=== PATIENT | female | born 1965 | race Caucasian/White ===

== ENCOUNTER 2021-12-22 18:59 | Emergency (ER) | payer BC ==
[~2021-12-22] VITALS: Ht 167.6 cm; Wt 86.4 kg
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
[2021-12-22] MEDS ORDERED: HYDROcodone/APAP 5/325MG 1 TAB TABLET PO ONE (19:45)
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
[2021-12-22] MEDS ORDERED: HYDR-2761 PO (20:03)
[2021-12-22 20:50] VITALS: BP 156/88
== END 2021-12-22 20:54 | disposition home or self-care (01) ==
LOC: ER 18:59
DX: S82.831A Other fracture of upper and lower end of right fibula, initial encounter for closed fracture (principal); H93.12 Tinnitus, left ear; I10 Essential (primary) hypertension; Y08.89XA Assault by other specified means, initial encounter; Y93.89 Activity, other specified; Y92.488 Other paved roadways as the place of occurrence of the external cause; Y99.8 Other external cause status
CPT/HCPCS: 29515; 70450; 72125; 73562; 73610; 99284-25

== ENCOUNTER → 2022-01-08 | Outpatient (CLI) | payer BC ==
[2021-12-22 20:50] VITALS: BP 156/88
[~2022-01-08] MED LIST: HYDR-2761 PO
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
== END ==
LOC: KCIC MRI 14:57
PROVIDERS: ATTEND Orthopaedic Surgery Sports Medicine
DX: S83.511A Sprain of anterior cruciate ligament of right knee, initial encounter (principal); M25.461 Effusion, right knee; X58.XXXA Exposure to other specified factors, initial encounter; Y93.89 Activity, other specified; Y92.89 Other specified places as the place of occurrence of the external cause; Y99.8 Other external cause status
CPT/HCPCS: 73721